=== PATIENT | male | born 1990 | race Caucasian/White ===

== ENCOUNTER 2025-08-16 12:31 | Emergency (ER) | payer OTHER ==
[~2025-08-16] VITALS: Ht 170.2 cm; Wt 127.3 kg
[2025-08-16 13:17] VITALS: TEMP 97.8
[2025-08-16 13:52] LABS: PLATELET COUNT (AUTO) 313 K/uL (150-450); RED BLOOD CELL COUNT(AUTO) 4.75 MIL/uL (4.50-5.90); RED CELL DISTRIBUTION WIDTH 13.6 % (11.5-14.5); WHITE BLOOD COUNT (AUTO) 9.2 K/uL (4.5-11.0)
[2025-08-16 14:01] LABS: CALCIUM, TOTAL 8.6 mg/dL (8.8-10.5); CREATININE 1.01 mg/dL (0.60-1.30); GLOMERULAR FILTR. RATE CALC > 60 mL/min (>60); GLUCOSE,RANDOM 86 mg/dL (70-110); SODIUM SERUM 143 mmol/L (136-145); UREA NITROGEN, BLOOD 12 mg/dL (7-18)
[2025-08-16 14:08] LABS: ASPARTATE AMINOTRANSFERASE 22.0 U/L (15-37); CREATINE KINASE, TOTAL ONLY 212.0 U/L (39-308); TOTAL PROTEIN, SERUM 7.3 g/dL (6.4-8.2)
[2025-08-16 14:09] LABS: TROPONIN I-HIGH SENSITIVITY 8 ng/L (<76)
[2025-08-16] MEDS: LevETIRAcetam 1,000 MG in DEXTROSE 5%-WATER 100 ML IV ONE (14:38)
[2025-08-16] MEDS ORDERED: LEVE-71 PO (15:42)
[2025-08-16 16:20] VITALS: BP 124/82; PULSE 85; RESP 15; O2SAT 97
== END 2025-08-16 16:22 | disposition home or self-care (01) ==
LOC: EMS 12:40
DX: R56.9 Unspecified convulsions (principal); F17.210 Nicotine dependence, cigarettes, uncomplicated
CPT/HCPCS: 99285; 96374; 70450; 71045; 80048; 80076; 82140; 82550; 82962; 84484; 85025; 36415; 93005; J0712; J7060